=== PATIENT | female | born 1995 | race Caucasian/White ===

== ENCOUNTER 2022-08-29 20:33 | Emergency (ER) | payer BC, OTHER ==
[2022-08-29] MEDS ORDERED: Acetaminophen 500 MG TAB ONE (21:50)
[2022-08-29] MEDS ORDERED: Ondansetron ODT 4 MG TAB ONE (21:50)
[2022-08-29 23:04] LABS: Bilirubin Neg (Negative); Blood, Urine 10 (Negative); Clarity Clear (Clear); Glucose, Urine (Dipstick) >=1000 mg/dL (Negative); Ketone, Urine 5 mg/dL (Negative); Leukocyte Negative (Negative); Nitrite Negative (Negative); Protein, Urine (Dipstick) 15 mg/dl (Neg-Trace); Urobilinogen Normal mg/dL (Less than 2)
[2022-08-29 23:11] LABS: Bacteria/HPF 1+ HPF (None Seen); Squamous Epithelial 0-3 HPF (0-3); WBC/HPF 0-3 HPF (0-3)
[2022-08-29] MEDS ORDERED: HYDROcodone/Acetaminophen 5/325 mg Tablet ONE (23:52)
== END 2022-08-30 00:47 | disposition home or self-care (01) ==
LOC: CSHERS 20:33
DX: O9A.213 Injury, poisoning and certain other consequences of external causes complicating pregnancy, third trimester (principal); S01.511A Laceration without foreign body of lip, initial encounter; V80.010A Animal-rider injured by fall from or being thrown from horse in noncollision accident, initial encounter; Z3A.32 32 weeks gestation of pregnancy
CPT/HCPCS: 36416; 59025; 70450; 72125; 76805; 81003; 81015; 87077; 87086; Q0162

== ENCOUNTER 2022-09-01 09:51 | Day surgery (SDC) | payer BC ==
[2022-09-01 10:24] VITALS: BMI 25.2
== END 2022-09-01 11:50 | disposition home or self-care (01) ==
LOC: CSHLD/OP 09:51
PROVIDERS: ATTEND Obstetrics & Gynecology
DX: S30.23XA Contusion of vagina and vulva, initial encounter (principal); V80.010A Animal-rider injured by fall from or being thrown from horse in noncollision accident, initial encounter; Z79.899 Other long term (current) drug therapy; Z3A.31 31 weeks gestation of pregnancy